=== PATIENT | male | born 1980 | race Caucasian/White ===

== ENCOUNTER 2018-02-02 14:02 | Emergency (ER) | payer SELFPAY ==
[~2018-02-02] VITALS: Ht 182.9 cm; Wt 83.0 kg
[2018-02-02 14:09] VITALS: BP 151/94; PULSE 118; RESP 16; TEMP 97.4; O2SAT 95
[2018-02-02] MEDS ORDERED: SODIUM CHLOR 0.9% 1000 ML INJ 1,000 ML IV SCH (15:43)
[2018-02-02] MEDS ORDERED: METOCLOPRAMIDE HCL 10 MG/2 ML VIAL IV PUSH ONE (15:45)
[2018-02-02] MEDS ORDERED: SODIUM CHLORIDE 0.9% FLUSH 10 ML FLUSH IV FLUSH PRN (15:45)
[2018-02-02] MEDS ORDERED: SODIUM CHLOR 0.9% 1000 ML INJ 1,000 ML IV ONE (15:45)
[2018-02-02] MEDS ORDERED: ZOFR4TAB PO (16:18)
--- NOTE | 2018-02-02 16:19 | PD ---
HPI Chief Complaint: GI Complaint Time Seen by Provider: 15:29 Travel History International Travel<30 days: No Contact w/Intl Traveler<30days: No Traveled to known affect area: No History of Present Illness HPI Patient is a 37-year-old male presents the emergency room with complaints of nausea, vomiting and diarrhea which began this morning around 6:30 AM. Patient reports that he thinks that he may have heat exhaustion, reports that the AC at her home broke a few days ago. Patient reports that it has been extremely hot in his house, patient reports that since this morning, he has not been able to keep any fluids, reports that he feels completely dehydrated and dry. Patient denies any abdominal pain, denies any fever or chills, reports that the same thing happened a few years ago and after receiving a couple liters of IV fluid, he felt "like a God." Patient denies any headache or dizziness, denies chest pain or shortness of breath, patient with no other complaints. Patient denies any sick contacts, no one is sick at home except for him. [facility] Past Medical History Medical History: Denies Significant Hx Tetanus Vaccination: > 5 Years Influenza Vaccination: No Past Surgical History Surgical History: No Previous Surgery Social History Alcohol Use: No Tobacco Use: Yes (08/15 PPD) Substance Use: No Allergies-Medications (Allergen,Severity, Reaction): Coded Allergies: No Known Allergies (Unverified , 02/02/18) Reported Meds & Prescriptions Reported Meds & Active Scripts Active Zofran (Ondansetron HCl) 4 Mg Tab 4 Mg PO Q6HR PRN Review of Systems General / Constitutional: No: Fever Eyes: No: Visual changes HENT: No: Headaches Cardiovascular: No: Chest Pain or Discomfort Respiratory: No: Shortness of Breath Gastrointestinal: Positive: Nausea, Vomiting, Diarrhea, No: Abdominal Pain, Constipation Genitourinary: No: Dysuria Musculoskeletal: No: Pain Skin: No Rash Neurologic: No: Weakness Psychiatric: No: Depression Endocrine: No: Polydipsia Hematologic/Lymphatic: No: Easy Bruising Physical Exam Narrative GENERAL: Mild distress SKIN: Focused skin assessment warm/dry. HEAD: Atraumatic. Normocephalic. EYES: Pupils equal and round. No scleral icterus. No injection or drainage. ENT: No nasal bleeding or discharge. Mucous membranes pink and moist. NECK: Trachea midline. No JVD. CARDIOVASCULAR: Regular rate and rhythm. No murmur appreciated. RESPIRATORY: No accessory muscle use. Clear to auscultation. Breath sounds equal bilaterally. GASTROINTESTINAL: Abdomen soft, non-tender, nondistended. Hepatic and splenic margins not palpable. MUSCULOSKELETAL: No obvious deformities. No clubbing. No cyanosis. No edema. NEUROLOGICAL: Awake and alert. No obvious cranial nerve deficits. Motor grossly within normal limits. Normal speech. PSYCHIATRIC: Appropriate mood and affect; insight and judgment normal. Data Data Last Documented VS Vital Signs Date Time Temp Pulse Resp B/P (MAP) Pulse Ox O2 Delivery O2 Flow Rate FiO2 02/02/18 16:30 98 Room Air 02/02/18 16:30 104 18 151/92 (111) 02/02/18 14:09 97.4 Orders Orders Complete Blood Count With Diff (02/02/18 15:43) Comprehensive Metabolic Panel (02/02/18 15:43) Urinalysis - C+S If Indicated (02/02/18 15:43) Iv Access Insert/Monitor (02/02/18 15:43) Ecg Monitoring (02/02/18 15:43) Oximetry (02/02/18 15:43) Sodium Chlor 0.9% 1000 Ml Inj (Ns 1000 M (02/02/18 15:43) Sodium Chloride 0.9% Flush (Ns Flush) (02/02/18 15:45) Metoclopramide Inj (Reglan Inj) (02/02/18 15:45) Sodium Chlor 0.9% 1000 Ml Inj (Ns 1000 M (02/02/18 15:45) Labs Laboratory Tests Test 02/02/18 16:00 02/02/18 16:20 White Blood Count 16.4 TH/MM3 Red Blood Count 5.87 MIL/MM3 Hemoglobin 18.2 GM/DL Hematocrit 55.0 % Mean Corpuscular Volume 93.8 FL Mean Corpuscular Hemoglobin 31.0 PG Mean Corpuscular Hemoglobin Concent 33.0 % Red Cell Distribution Width 12.4 % Platelet Count 253 TH/MM3 Mean Platelet Volume 7.4 FL Neutrophils (%) (Auto) 95.4 % Lymphocytes (%) (Auto) 3.0 % Monocytes (%) (Auto) 1.0 % Eosinophils (%) (Auto) 0.3 % Basophils (%) (Auto) 0.3 % Neutrophils # (Auto) 15.7 TH/MM3 Lymphocytes # (Auto) 0.5 TH/MM3 Monocytes # (Auto) 0.2 TH/MM3 Eosinophils # (Auto) 0.0 TH/MM3 Basophils # (Auto) 0.0 TH/MM3 CBC Comment DIFF FINAL Differential Comment Blood Urea Nitrogen 30 MG/DL Creatinine 1.30 MG/DL Random Glucose 123 MG/DL Total Protein 8.3 GM/DL Albumin 4.3 GM/DL Calcium Level 9.4 MG/DL Alkaline Phosphatase 107 U/L Aspartate Amino Transf (AST/SGOT) 13 U/L Alanine Aminotransferase (ALT/SGPT) 32 U/L Total Bilirubin 0.7 MG/DL Sodium Level 139 MEQ/L Potassium Level 4.3 MEQ/L Chloride Level 108 MEQ/L Carbon Dioxide Level 21.9 MEQ/L Anion Gap 9 MEQ/L Estimat Glomerular Filtration Rate 62 ML/MIN Urine Color YELLOW Urine Turbidity CLEAR Urine pH 5.5 Urine Specific [place] 1.025 Urine Protein NEG mg/dL Urine Glucose (UA) NEG mg/dL Urine Ketones NEG mg/dL Urine Occult Blood NEG Urine Nitrite NEG Urine Bilirubin NEG Urine Urobilinogen 0.2 MG/DL Urine Leukocyte Esterase NEG Microscopic Urinalysis Comment CULT NOT INDICATED MDM Medical Decision Making Medical Screen Exam Complete: Yes Emergency Medical Condition: Yes Medical Record Reviewed: Yes Interpretation(s) Vital Signs Date Time Temp Pulse Resp B/P (MAP) Pulse Ox O2 Delivery O2 Flow Rate FiO2 02/02/18 14:09 97.4 118 16 151/94 (113) 95 Differential Diagnosis Heat exhaustion, viral syndrome, gastroenteritis, dehydration Narrative Course During the course of the patients emergency department visit, the patients history, examination, and differential diagnosis were reviewed with the patient. The patient was placed on a awake overnight monitor with oximetry and frequent blood pressure monitoring. The patient had an IV access obtained and blood work sent for analysis. The patient was initially provided IVF as well as IV reglan. The patients laboratory studies were reviewed and remarkable for CBC & BMP Diagram 02/02/18 16:00 Total Protein 8.3 H, Albumin 4.3, Calcium Level 9.4, Alkaline Phosphatase 107, Aspartate Amino Transf (AST/SGOT) 13 L, Alanine Aminotransferase (ALT/SGPT) 32, Total Bilirubin 0.7 Patient with a leukocytosis with a white blood cell count of 16.4, most likely a stress reaction. After 2 L of IV fluids, patient reports that he is feeling much better. Patient was able to drink a bottle of Gatorade without any difficulties. Patient reports that he does feel 100% better and would like to be discharged to home. All labs were reviewed with patient, he will return to the emergency room as needed. Diagnosis Primary Impression: Nausea vomiting and diarrhea Patient Instructions: General Instructions Additional Instructions: Please provide patient with a copy of their lab work and studies at discharge* * Please follow up with your primary care doctor in 2-3 days Return to the ER if symptoms worsen or progress Return to the ER as needed Please drink plenty of fluids Med/Other Pt SpecificInfo: Prescription(s) given Scripts Ondansetron (Zofran) 4 Mg Tab 4 MG PO Q6HR Y for NAUSEA OR VOMITING, #20 TAB 0 Refills Prov: Ev Gray DO 02/02/18 Disposition: 01 DISCHARGE HOME Condition: Stable Ev Gray DO Feb 02, 2018 16:19
[2018-02-02 16:22] LABS: AUTOMATED NEUTROPHIL # 15.7 TH/MM3 (1.8-7.7); BASOPHIL % 0.3 % (0.0-2.0); EOSINOPHIL % 0.3 % (0.0-4.0); HEMOGLOBIN 18.2 GM/DL (13.0-17.0); LYMPHOCYTE # 0.5 TH/MM3 (1.0-4.8); MEAN CELL VOLUME 93.8 FL (80.0-100.0); MEAN PLATELET VOLUME 7.4 FL (7.0-11.0); MONOCYTE # 0.2 TH/MM3 (0-0.9); NEUT % 95.4 % (16.0-70.0); PLATELET COUNT 253 TH/MM3 (150-450); RED BLOOD COUNT 5.87 MIL/MM3 (4.50-5.90); RED CELL DISTRIBUTION WIDTH 12.4 % (11.6-17.2); WHITE BLOOD COUNT 16.4 TH/MM3 (4.0-11.0)
[2018-02-02 16:30] VITALS: BP 151/92; PULSE 104; RESP 18; O2SAT 98
[2018-02-02 16:34] LABS: CHLORIDE 108 MEQ/L (98-107); SODIUM (NA) 139 MEQ/L (136-145)
[2018-02-02 16:36] LABS: CALCIUM 9.4 MG/DL (8.5-10.1)
[2018-02-02 16:37] LABS: ALBUMIN 4.3 GM/DL (3.4-5.0); BICARBONATE 21.9 MEQ/L (21.0-32.0); BLOOD UREA NITROGEN 30 MG/DL (7-18); GLUCOSE,RANDOM 123 MG/DL (74-106)
[2018-02-02 16:40] LABS: ALT (GPT) 32 U/L (12-78); AST (GOT) 13 U/L (15-37); GLOMERULAR FILTRATION RATE 62 ML/MIN (>89)
[2018-02-02 16:42] LABS: BILIRUBIN, URINE NEG (NEG); BLOOD, URINE NEG (NEG); GLUCOSE,URINE NEG (NEG); KETONE, URINE NEG (NEG); NITRITE,URINE NEG (NEG); PH, URINE 5.5 (5.0-8.5); URINE COLOR YELLOW (YELLW/STRAW); URINE LEUKOCYTE ESTERASE NEG (NEG)
[2018-02-02 16:42] LABS: TOTAL BILIRUBIN ADULT 0.7 MG/DL (0.2-1.0); TOTAL PROTEIN 8.3 GM/DL (6.4-8.2)
[2018-02-02 16:43] LABS: ALKALINE PHOSPHATASE 107 U/L (45-117)
== END 2018-02-02 17:40 | disposition home or self-care (01) ==
LOC: PHED 14:02
DX: R11.2 Nausea with vomiting, unspecified (principal); R19.7 Diarrhea, unspecified; F17.210 Nicotine dependence, cigarettes, uncomplicated
CPT/HCPCS: 80053; 81001; 85025; 96361; 96374; 99284; J2765; J7030